=== PATIENT | female | born 1990 | race Caucasian/White ===

== ENCOUNTER 2019-05-23 16:18 | Emergency (ER) | payer OTHER ==
[~2019-05-23] VITALS: Ht 157.5 cm; Wt 60.0 kg
[~2019-05-23 16:18] MED LIST: CEPH-443 PO; SULF1TAB31 PO
[2019-05-23 16:21] VITALS: BP 121/81; PULSE 83; RESP 18; Ht 157.5 cm; Wt 60.0 kg
== END 2019-05-23 18:26 | disposition home or self-care (01) ==
LOC: FTE 16:18
DX: S70.361A Insect bite (nonvenomous), right thigh, initial encounter (principal); L08.9 Local infection of the skin and subcutaneous tissue, unspecified; W57.XXXA Bitten or stung by nonvenomous insect and other nonvenomous arthropods, initial encounter; Y92.9 Unspecified place or not applicable
CPT/HCPCS: 81025; Z7502; 99283